=== PATIENT | male | born 1990 | race Caucasian/White ===

== ENCOUNTER 2023-04-23 18:24 | Emergency (ER) | payer SELFPAY | END 2023-04-23 20:01 | disposition home or self-care (01) | LOC: ERS 18:24 | DX: M25.552 Pain in left hip (principal); F17.210 Nicotine dependence, cigarettes, uncomplicated ==

== ENCOUNTER 2023-06-27 10:18 | Emergency (ER) | payer SELFPAY ==
[2023-06-27] MEDS ORDERED: Lidocaine 1% w/Epinephrine 1:100K 20 ML VIAL ONE (11:08)
== END 2023-06-27 13:03 | disposition home or self-care (01) ==
LOC: ERS 10:18
DX: S81.811A Laceration without foreign body, right lower leg, initial encounter (principal); F17.210 Nicotine dependence, cigarettes, uncomplicated; X58.XXXA Exposure to other specified factors, initial encounter
CPT/HCPCS: 12002

== ENCOUNTER 2023-07-11 15:43 | Emergency (ER) | payer SELFPAY ==
[2023-07-11] MEDS ORDERED: Bacitracin 1 PK ONE (16:38)
== END 2023-07-11 16:45 | disposition home or self-care (01) ==
LOC: ERS 15:43
DX: S81.811D Laceration without foreign body, right lower leg, subsequent encounter (principal); W22.8XXD Striking against or struck by other objects, subsequent encounter